=== PATIENT | male | born 1970 | race Caucasian/White ===

== ENCOUNTER 2019-11-25 15:02 | Emergency (ER) | payer MEDICARE, SELFPAY ==
[2019-11-25 15:31] VITALS: BP 125/81; PULSE 109; RESP 14; TEMP 36.7; O2SAT 98; BMI 29.0
--- NOTE | 2019-11-25 15:53 | XRR_ITS ---
PROCEDURE INFORMATION: Exam: XR Chest, 1 View Exam date and time: 11/25/2019 4:11 PM Age: 49 years old Clinical indication: Chest pain; Type not specified TECHNIQUE: Imaging protocol: XR of the chest Views: 1 view. COMPARISON: No relevant prior studies available. FINDINGS: Lungs: Unremarkable. No consolidation. Pleural space: Unremarkable. No pleural effusion. No pneumothorax. Heart/Mediastinum: Unremarkable. No cardiomegaly. Bones/joints: Unremarkable. XR/XR chest 1V portable [id number] IMPRESSION: No acute findings.
--- NOTE | 2019-11-25 15:53 | ECG_ITS ---
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 Measurements Intervals [place] Rate: 107 P: 43 KS: 156 QRS: 13 QRSD: 87 T: 44 QT: 319 QTc: 426 Interpretive Statements SINUS TACHYCARDIA POSSIBLE RIGHT VENTRICULAR CONDUCTION DELAY [RSR (QR) IN V1/V2] NONSPECIFIC ST & T-WAVE ABNORMALITY ABNORMAL RHYTHM ECG No previous ECG available for comparison Electronically Signed On 11-25-2019 18:06:03 CDT by Andrea Nava M.D. [email or web address]
--- NOTE | 2019-11-25 15:59 | ED_ITS ---
Documented by User: Paco Guevara DO 11/27/19 06:15 HPI - Chest Pain General: Chief Complaint: Chest Pain Stated Complaint: CHEST PAIN Time Seen by Provider: 11/25/19 15:56 History of Present Illness: HPI narrative: 50-year-old male presents emergency room complaining of chest pain and epigastric pain. He took an rhuq-osm-gzwvltv male enhancement pill yesterday and started getting discomfort since then he is not sure what is in it he does not think it was a Viagra or Cialis or Levitra. He is a little bit sedate in the room today. He has not had any GI blood loss. He denies any diarrhea. He has had some nausea and a couple episodes of vomiting. He does have a subjective fever no cough. He has no COVID exposure that he is aware of. Onset (ago): hour(s) Timing of current episode: episodic Onset: during rest and associated with drug use (New jfza-cdy-wenpbhk male enhancement pill) Pain location: epigastric Pain radiation: none (Chest) Quality: heaviness Relieving factors: nothing Exacerbating factors: other Associated symptoms: Reports abdominal pain, fever(s) and other (Cough); Deny dyspnea Treatment prior to arrival: none Review of Systems Const: Reports: fever(s) ENMT: Denies: throat pain, ear or mastoid pain, nasal discharge or nasal congestion Card: Denies: chest pain, edema, dyspnea on exertion or orthopnea Resp: Denies: dyspnea, productive cough or non-productive cough GI: Reports: abdominal pain : Denies: flank pain, dysuria, urinary frequency or urinary urgency Skin/Breast: Denies: rash or pruritus [facility] ED PFSH: Medical History (Updated 11/25/19 @ 16:44 by Paco Guevara DO) Anal fissure No significant past medical history Wrist fracture, left Social History (Updated 11/25/19 @ 16:06 by Paco Guevara DO) Smoking and tobacco status: never smoked Alcohol intake: never Physical Exam Const: COMMON NORMALS: no acute distress GENERAL APPEARANCE: cooperative and comfortable ORIENTATION/CONSCIOUSNESS: Yes awake, Yes oriented to person, Yes oriented to place and Yes oriented to time HENMT: COMMON NORMALS: normocephalic and atraumatic HEAD & SCALP: normocephalic and atraumatic Neck/C-Spine: COMMON NORMALS: no JVD Resp: COMMON NORMALS: normal respiratory effort, No retractions, No use of accessory muscles and clear to auscultation bilaterally AUSCULTATION: clear to auscultation bilaterally Cardio: COMMON NORMALS: no JVD, regular rate, regular rhythm and No murmurs present (Cardio) RATE: regular rate RHYTHM: regular rhythm GI: COMMON NORMALS: Soft to palpation and No hepatosplenomegaly present AUSCULTATION: Yes normoactive bowel sounds PALPATION: Yes Soft to palpation, No Tenderness to palpation present (GI), No Guarding due to palpation present (GI) and Yes No hepatosplenomegaly present Extremity: COMMON NORMALS: normal to inspection, capillary refill normal, no clubbing, cyanosis or edema, no calf tenderness and no pedal edema Neuro: SENSORIUM/ORIENTATION: Yes oriented to person, Yes oriented to place and Yes oriented to time Skin: COMMON NORMALS: no rashes or lesions noted GENERAL SKIN EXAM: no rashes or lesions noted Course Vital Signs: Vital signs: Vital Signs Temperature 98.1 F 11/25/19 15:31 Pulse Rate 109 H 11/25/19 16:58 Respiratory Rate 18 11/25/19 16:58 Blood Pressure 137/96 11/25/19 16:58 Pulse Oximetry 93 11/25/19 16:58 MDM - Chest Pain MDM Narrative: Medical decision making narrative: Troponin negative will discharge patient home start on Protonix encouraged him to avoid the ffeo-arj-kwkmpzb medication he took that seemed to precipitate this will set him up for a graded exercise test. Lab Data: Attestation: I reviewed the patient's lab results. Labs: Lab Results 11/25/19 11/25/19 11/25/19 Range/Units 16:05 16:05 16:05 WBC 11.5 H (4.0-10.0) 10^3/ uL RBC 5.17 (4.1-5.3) 10^6/u L Hgb 15.3 (11.7-16.6) g/dL Hct 47.3 (42.0-52.0) % MCV 91.5 (80-94) fL MCH 29.6 (28.0-34.0) pg MCHC 32.3 (30.0-36.0) g/dL RDW 12.9 (12.1-15.1) % Plt Count 217 (130-400) 10^3/c mm MPV 10.9 H (7.4-10.4) fL Neut % (Auto) 83.8 % Lymph % (Auto) 8.0 % Jackson % (Auto) 6.2 % Eos % (Auto) 1.5 % Baso % (Auto) 0.2 % Neut # (Auto) 9.63 H (1.8-7.7) 10^3/u L Lymph # (Auto) 0.9 (0.8-4.8) 10^3/u L Jackson # (Auto) 0.7 (0.2-0.9) 10^3/u L Eos # (Auto) 0.2 (0.0-0.8) 10^3/u L Baso # (Auto) 0.0 (0.0-0.1) 10^3/u L Nucleated RBC % (a uto) 0 % Nucleated RBCs # 0.0 /100WBC Sodium 136 (136-145) mmol/L Potassium 4.0 (3.5-5.1) mmol/L Chloride 100 (98-107) mmol/L Carbon Dioxide 27 (22-29) mmol/L Anion Gap 13.0 (5-19) BUN 16 (6-20) mg/dL Creatinine 1.2 (0.7-1.2) mg/dL GFR Calculation 63.8 L (90-130) mL/min Glucose 172 H (65-115) mg/dL Calculated Osmolal ity 282 L (285-295) mOsm/k g Calcium 9.6 (8.5-10.5) mg/dL Total Bilirubin 0.8 (0.15-1.2) mg/dL AST 17 (0-40) U/L ALT 18 (0-41) U/L Alkaline Phosphata se 92 (40-130) IU/L Troponin T Baselin e 6 (0-15) ng/L Total Protein 7.4 (6.6-8.7) g/dL Albumin 4.3 (3.5-5.2) g/dL Globulin 3.1 (1.3-4.6) g/dL Discharge Plan Discharge Patient Disposition: Home Clinical Impression: Reflux esophagitis, Medication side effect Condition: Stable Prescriptions: New Protonix 40 mg tablet,delayed release (DR/EC) 40 mg PO BID 14 Days Qty: 28 RF: 0 Discharge Orders: Discharge Order (Routine); Ordered 11/25/19 Ordered By: Paco Guevara Discharge Diet: Usual diet Discharge Activity: Resume usual activity Activity Restrictions/Additional Instructions: Do not take the mpjm-ktg-uwvtjay medication in question Discharge Date/Time: 11/25/19 16:59 Coding Level of Care Code ED Casework Specialist for Chg Fwd Exam Comprehensive Documented by User: GRADY Bird 11/28/19 07:05 HPI - Chest Pain General: Chief Complaint: Chest Pain Stated Complaint: CHEST PAIN Time Seen by Provider: 11/25/19 15:56 PFSH ED PFSH: Medical History (Updated 11/25/19 @ 16:44 by Paco Guevara DO) Anal fissure No significant past medical history Wrist fracture, left Social History (Updated 11/25/19 @ 16:06 by Paco Guevara DO) Smoking and tobacco status: never smoked Alcohol intake: never Course Vital Signs: Vital signs: Vital Signs Temperature 98.1 F 11/25/19 15:31 Pulse Rate 109 H 11/25/19 16:58 Respiratory Rate 18 11/25/19 16:58 Blood Pressure 137/96 11/25/19 16:58 Pulse Oximetry 93 11/25/19 16:58 MDM - Chest Pain MDM Narrative: Medical decision making narrative: I had originally started a chart on patient with the intent of seeing him however Dr. Casiano ended up seeing him instead. I had no active participation in any portion of patient's care. ES Lab Data: Labs: Lab Results 11/25/19 11/25/19 11/25/19 Range/Units 16:05 16:05 16:05 WBC 11.5 H (4.0-10.0) 10^3/ uL RBC 5.17 (4.1-5.3) 10^6/u L Hgb 15.3 (11.7-16.6) g/dL Hct 47.3 (42.0-52.0) % MCV 91.5 (80-94) fL MCH 29.6 (28.0-34.0) pg MCHC 32.3 (30.0-36.0) g/dL RDW 12.9 (12.1-15.1) % Plt Count 217 (130-400) 10^3/c mm MPV 10.9 H (7.4-10.4) fL Neut % (Auto) 83.8 % Lymph % (Auto) 8.0 % Jackson % (Auto) 6.2 % Eos % (Auto) 1.5 % Baso % (Auto) 0.2 % Neut # (Auto) 9.63 H (1.8-7.7) 10^3/u L Lymph # (Auto) 0.9 (0.8-4.8) 10^3/u L Jackson # (Auto) 0.7 (0.2-0.9) 10^3/u L Eos # (Auto) 0.2 (0.0-0.8) 10^3/u L Baso # (Auto) 0.0 (0.0-0.1) 10^3/u L Nucleated RBC % (a uto) 0 % Nucleated RBCs # 0.0 /100WBC Sodium 136 (136-145) mmol/L Potassium 4.0 (3.5-5.1) mmol/L Chloride 100 (98-107) mmol/L Carbon Dioxide 27 (22-29) mmol/L Anion Gap 13.0 (5-19) BUN 16 (6-20) mg/dL Creatinine 1.2 (0.7-1.2) mg/dL GFR Calculation 63.8 L (90-130) mL/min Glucose 172 H (65-115) mg/dL Calculated Osmolal ity 282 L (285-295) mOsm/k g Calcium 9.6 (8.5-10.5) mg/dL Total Bilirubin 0.8 (0.15-1.2) mg/dL AST 17 (0-40) U/L ALT 18 (0-41) U/L Alkaline Phosphata se 92 (40-130) IU/L Troponin T Baselin e 6 (0-15) ng/L Total Protein 7.4 (6.6-8.7) g/dL Albumin 4.3 (3.5-5.2) g/dL Globulin 3.1 (1.3-4.6) g/dL Discharge Plan Discharge Patient Disposition: Home Clinical Impression: Reflux esophagitis, Medication side effect Condition: Stable Prescriptions: New Protonix 40 mg tablet,delayed release (DR/EC) 40 mg PO BID 14 Days Qty: 28 RF: 0 Discharge Orders: Discharge Order (Routine); Ordered 11/25/19 Ordered By: Paco Guevara Discharge Diet: Usual diet Discharge Activity: Resume usual activity Activity Restrictions/Additional Instructions: Do not take the rqph-dzx-jjxizrv medication in question Discharge Date/Time: 11/25/19 16:59 Coding Level of Care Code ED Casework Specialist for Obed Fwduglas Exam Comprehensive
[2019-11-25 16:21] LABS: Basophils % 0.2 %; Eosinophils # 0.2 10^3/uL (0.0-0.8); Eosinophils % 1.5 %; Hematocrit 47.3 % (42.0-52.0); Hemoglobin 15.3 g/dL (11.7-16.6); Lymphocytes # 0.9 10^3/uL (0.8-4.8); Mean Corpuscular HGB Conc 32.3 g/dL (30.0-36.0); Mean Corpuscular Hemoglobin 29.6 pg (28.0-34.0); Mean Corpuscular Volume 91.5 fL (80-94); Mean Platelet Volume 10.9 fL (7.4-10.4); Monocytes # 0.7 10^3/uL (0.2-0.9); Monocytes % 6.2 %; Neutrophils # 9.63 10^3/uL (1.8-7.7); Neutrophils % 83.8 %; Nucleated Red Blood Cells % 0 %; Platelet Count 217 10^3/cmm (130-400); Red Blood Count 5.17 10^6/uL (4.1-5.3); Red Cell Distribution Width 12.9 % (12.1-15.1); White Blood Count 11.5 10^3/uL (4.0-10.0)
[2019-11-25 16:40] LABS: Alanine Aminotransferase 18 U/L (0-41); Albumin Level 4.3 g/dL (3.5-5.2); Alkaline Phosphatase 92 IU/L (40-130); Aspartate Amino Transferase 17 U/L (0-40); Blood Urea Nitrogen 16 mg/dL (6-20); Calcium 9.6 mg/dL (8.5-10.5); Carbon Dioxide 27 mmol/L (22-29); Chloride 100 mmol/L (98-107); Globulin 3.1 g/dL (1.3-4.6); Glomerular Filtration Rate 63.8 mL/min (90-130); Glucose 172 mg/dL (65-115); Osmolality Calculated 282 mOsm/kg (285-295); Sodium 136 mmol/L (136-145); Total Bilirubin 0.8 mg/dL (0.15-1.2); Total Protein 7.4 g/dL (6.6-8.7)
[2019-11-25 16:42] LABS: Troponin(5th) Baseline 6 ng/L (0-15)
[2019-11-25 16:58] VITALS: BP 137/96; PULSE 109; RESP 18; O2SAT 93
--- NOTE | 2019-11-27 15:27 | DCPLANNER ---
fountain manager had message to schedule an outpatient stress test for patient. fountain manager called phone number [phone], no answer and no voicemail set up, called [phone] and this phone number was not in service. fountain manager could not confirm that patient wanted to have test done, and could not confirm who patient sees for primary care at this time.
== END 2019-11-25 16:59 | disposition home or self-care (01) ==
PROVIDERS: Physician Assistant; Emergency Provider Family Medicine
DX: K21.0 Gastro-esophageal reflux disease with esophagitis (principal); T50.905A Adverse effect of unspecified drugs, medicaments and biological substances, initial encounter
CPT/HCPCS: 12345; 36415; 71045; 80053; 84484; 85025; 93005; 99281; 99283

== ENCOUNTER → 2022-05-14 13:13 | Outpatient (BNVA) | payer MEDICARE, MEDICAID, SELFPAY | PROVIDERS: Visit Provider Podiatrist Foot & Ankle Surgery | DX: B35.1 Tinea unguium (principal); L84 Corns and callosities; M72.2 Plantar fascial fibromatosis; L97.529 Non-pressure chronic ulcer of other part of left foot with unspecified severity | CPT/HCPCS: 11721; 73630; 99204 ==

== ENCOUNTER → 2022-05-21 14:09 | Outpatient (BNVA) | payer MEDICARE, MEDICAID, SELFPAY | PROVIDERS: Visit Provider Podiatrist Foot & Ankle Surgery | DX: B35.1 Tinea unguium (principal); L84 Corns and callosities; M72.2 Plantar fascial fibromatosis | CPT/HCPCS: 99213 ==

== ENCOUNTER → 2022-06-05 15:14 | Outpatient (BNVA) | payer MEDICARE, MEDICAID, SELFPAY | PROVIDERS: Visit Provider Podiatrist Foot & Ankle Surgery | DX: B35.1 Tinea unguium (principal); L84 Corns and callosities; M72.2 Plantar fascial fibromatosis | CPT/HCPCS: 99213 ==

== ENCOUNTER → 2022-06-27 13:00 | Outpatient (BNVA) | payer MEDICARE, MEDICAID, SELFPAY | PROVIDERS: Visit Provider Podiatrist Foot & Ankle Surgery | DX: B35.1 Tinea unguium (principal); L84 Corns and callosities; L97.522 Non-pressure chronic ulcer of other part of left foot with fat layer exposed | CPT/HCPCS: 99213 ==

== ENCOUNTER → 2022-07-04 13:27 | Outpatient (BNVA) | payer MEDICARE, MEDICAID, SELFPAY | PROVIDERS: Visit Provider Podiatrist Foot & Ankle Surgery | DX: L97.522 Non-pressure chronic ulcer of other part of left foot with fat layer exposed (principal); L84 Corns and callosities | CPT/HCPCS: 11042; 73630 ==

== ENCOUNTER → 2022-07-18 14:51 | Outpatient (BNVA) | payer MEDICARE, MEDICAID, SELFPAY | PROVIDERS: Visit Provider Podiatrist Foot & Ankle Surgery | DX: L84 Corns and callosities (principal); L97.522 Non-pressure chronic ulcer of other part of left foot with fat layer exposed | CPT/HCPCS: 99213 ==

== ENCOUNTER → 2022-07-31 09:49 | Outpatient (BNVA) | payer MEDICARE, MEDICAID, SELFPAY | PROVIDERS: Visit Provider Podiatrist Foot & Ankle Surgery | DX: L97.522 Non-pressure chronic ulcer of other part of left foot with fat layer exposed (principal) | CPT/HCPCS: 99213 ==

== ENCOUNTER 2022-08-10 05:41 | Day surgery (SDC) | payer MEDICARE, MEDICAID, SELFPAY ==
[2022-08-09 11:40] VITALS: BMI 29.0
[2022-08-10] VITALS (7 sets, daily range): BP systolic 90–163; BP diastolic 69–135; PULSE 81–101; RESP 16–18; TEMP 36.1–36.3; O2SAT 95–96
[2022-08-10] MEDS: acetaminophen 1,000 MG/100 ML PIGGYBACK 400 MG IV (06:12)
[2022-08-10] MEDS: gabapentin 300 mg Capsule PO (06:13)
[2022-08-10] MEDS: sodium chloride 0.9% 1,000 ML 30 ML IV (06:13)
--- NOTE | 2022-08-10 06:41 | P.HPUD_ITS ---
Surgery/Procedure H&P Update DATE OF PROCEDURE: August 10, 2022 DATE H&P PERFORMED: 07/31/22 CHANGES TO PREVIOUS DOCUMENTATION: No changes PLANNED PROCEDURE: Operation Date: 08/10/22 07:00 Proposed Procedures p :?Left hallux Incision bone cortex CPT 93454, Left 2nd toe partial amputation CPT 30889,?M86.172(Left) - Aneesh Anderson DPM s Left 2nd toe partial amputation CPT 57498(Left) - Aneesh Anderson DPM
--- NOTE | 2022-08-10 06:41 | W.PM.OPSUD ---
Surgery/Procedure H&P Update DATE OF PROCEDURE: August 10, 2022 DATE H&P PERFORMED: 07/31/22 CHANGES TO PREVIOUS DOCUMENTATION: No changes PLANNED PROCEDURE: Operation Date: 08/10/22 07:00 Proposed Procedures p :?Left hallux Incision bone cortex CPT 39670, Left 2nd toe partial amputation CPT 27701,?M86.172(Left) - Aneesh Anderson DPM s Left 2nd toe partial amputation CPT 10051(Left) - Aneesh Anderson DPM
[2022-08-10] MEDS: ceFAZolin 2,000 MG in sodium chloride 0.9% (plus) 50 ML 100 MG IV (07:00)
--- NOTE | 2022-08-10 07:12 | ANES.PREANE2 ---
Pre-Anesthetic Assessment Height/Weight: Height 1.85 m Weight 99.79 kg Temp Pulse Resp BP Pulse Ox O2 Del Method 97.4 F L 101 H 18 163/135 95 Room Air 08/10/22 06:00 08/10/22 06:00 08/10/22 06:00 08/10/22 06:00 08/10/22 06:00 08/10/22 06:08 Operation Date: 08/10/22 07:00 Proposed Procedures p :?Left hallux Incision bone cortex CPT 56704, Left 2nd toe partial amputation CPT 20047,?M86.172(Left) - Aneesh Anderson DPM s Left 2nd toe partial amputation CPT 27480(Left) - Aneesh Anderson DPM Familial anesthetic complications: none Was Beta Nely taken within 24 hours: N/A Was Clonidine taken within 24 hours: N/A Last intake: Intake Last Liquid Date 08/09/22 Last Liquid Time 22:30 Last Solid Date 08/09/22 Last Solid Time 21:00 Social Tobacco and No alcohol Exam alert, oriented x 3 and regular rate & rhythm Airway Submandibular: within normal limits Cervical ROM: within normal limits Mallampati: Class II Dentition: chipped and loose Pulmonary Chronic Obstructive Pulmonary Disease Anesthetic Plan ASA status: 2 Anesthesia: MAC Medications/Allergies Home Medications Medication Instructions Recorded Confirmed Last Taken Type doxycycline hyclate 100 mg capsule 100 mg PO BID #20 caps 07/31/22 08/09/22 08/09/22 Rx hydrocodone 5 mg-acetaminophen 325 1 tab PO Q6H #16 tabs 08/10/22 Unknown Rx mg tablet Allergies Allergy/AdvReac Type Severity Reaction Status Date / Time No Known Allergies Allergy Verified 08/09/22 11:38 Current Medications Generic Name Dose Route Start Last Admin Trade Name Freq PRN Reason Stop Dose Admin Sodium Chloride 1,000 mls @ 30 mls/hr 08/10/22 06:00 08/10/22 06:13 Sodium Chloride 0.9% IV 08/11/22 05:59 30 mls/hr .Q24H EUGENE Administration PFSH Anesthesia Medical History Anal fissure No significant past medical history Wrist fracture, left Social History Smoking and tobacco status: never smoked Alcohol intake: never Data Anesthesia Cardiac Studies: No Data to Display
[2022-08-10] MEDS: HYDROcodone-acetaminophen 5-325 mg Tablet 1 TAB PO (08:30)
--- NOTE | 2022-08-10 14:35 | ANE.PACU2 ---
Inpatient post-anesthesia follow up: Airway intact: Yes Vital signs: Temperature 97.1 F Pulse Rate 81 Respiratory Rate 18 Blood Pressure 109/81 Pulse Oximetry 96 Oxygen Delivery Me thod Room Air Oxygen Flow Rate 6 Fraction of Inspir ed Oxygen Hydration adequate: Yes Nausea and vomiting: No Pain level: 1 Mental status: Baseline
--- NOTE | 2022-08-10 17:00 | P.OP_ITS ---
Operative Report Date of procedure: August 10, 2022 Pre-op diagnosis: 1. Left hallux osteomyelitis 2. Left second toe osteomyelitis Post-op diagnosis: Same Post-op findings: Degenerative left hallux interphalangeal joint with evidence of osteomyelitis. Left second digit distal phalanx erosion consistent with osteomyelitis. Small abscess formation associated with left hallux interphalangeal joint. Procedure done: 1. Incision bone cortex left hallux CPT 37901 2. Left second digit partial amputation CPT 47054 Implants: Simplex P antibiotic cement spacer Specimens removed/disposition: Distal second digit left foot sent to pathology Deep tissue cultures left hallux interphalangeal joint sent to micro for ID and sensitivity Surgeon: Dr. Aneesh Anderson D.P.M. Estimated blood loss: Less than 10 cc Complications: None Findings: See above Procedure: Patient is a 52-year-old male that has a history of left hallux osteomyelitis as well as second digit osteomyelitis. The patient has had the aforementioned chief complaint for some time. Conservative treatment measures have been attempted and the patient has opted for surgical intervention at this time. A lengthy discussion regarding the procedure, including risks and complications has been had with the patient and is noted in the recent clinic note. Written and verbal consent have been obtained. All patient questions have been answered to the patient?s satisfaction. No written or verbal guarantees have been given or implied. The patient has been NPO since midnight. The history has been reviewed and the history and physical is current. The signed consent was confirmed and placed in the patient chart. Patient imaging has been reviewed and is consistent with the diagnosis. Under mild sedation, the patient was brought into the operating room and placed on the table in the supine position. IV antibiotics were given by the anesthesia team as preoperative surgical prophylaxis. IV sedation was then performed by the anesthesiateam. A pneumatic tourniquet was then placed about the left ankle. A local field block was then performed using 0.5% Marcaine plain the operative extremity was then prepped and draped in the usual fashion. The extremity was then elevated and exsanguinated before the tourniquet was inflated to 250 mmHg. After inflation, the following procedure was then performed. Attention was directed to the left hallux where a 4 cm incision was made over the hallux interphalangeal joint. Dissection was carried down through subcutaneous and superficial fascia to the level of the extensor tendon. The extensor tendon was then transected transversely at the level hallux interphalangeal joint. Dissection was carried down to the hallux interphalangeal joint capsule which was incised. The lateral aspect of the distal phalanx was discolored with erosive changes indicative of osteomyelitis. Sagittal bone saw was used to resect the hallux interphalangeal joint. After resection of the joint, deep tissue cultures aerobic and anaerobic were taken and sent to micro for ID and sensitivity. The site was irrigated with copious amounts of sterile saline before a Simplex P antibiotic spacer was placed into the void. Attention was then directed to closure. The extensor tendon was reapproximated using 2-0 Vicryl followed by skin closure using 3-0 nylon. Attention was then directed to the adjacent second digit. A fishmouth incision was made over the second digit using a #15 blade, this incision was full- thickness down to bone. Dissection was carried out to the level of the proximal interphalangeal joint. The distal digit was disarticulated at the level of the proximal phalangeal joint. The site was then irrigated with copious amounts of sterile saline. After irrigation, the amputation site was closed using 3-0 nylon in simple interrupted fashion. The tourniquet was let down and good hyperemic spots was noted to all digits of the left foot. The incision sites were dressed with Xeroform, 4 x 4 gauze, Kerlix, [place]. The patient tolerated the procedure and anesthesia well and without complication. The patient was transported from the operating room to the recovery room with vital signs stable and vascular status intact to all digits of the left foot. The patient was given both written and verbal instructions to remain weightbearing as tolerated to the operative extremity, to keep dress ings/splint clean, dry and intact and to take pain medication as directed. The patient will follow-up in the outpatient setting at their scheduled appointment. The patient was discharged with my personal number and was instructed to call if any questions or issues should arise. They were discharged home once anesthesia criteria was met.
== END 2022-08-10 09:00 | disposition home or self-care (01) ==
PROVIDERS: PCP Family Medicine; Visit Provider Podiatrist Foot & Ankle Surgery
PROC: (CPT 28005; principal; 2022-08-10 07:00)
PROC: (CPT 28005; 2022-08-10 07:00)
PROC: (CPT 20704; 2022-08-10 07:00)
DX: M86.172 Other acute osteomyelitis, left ankle and foot (principal); J44.9 Chronic obstructive pulmonary disease, unspecified
CPT/HCPCS: 28005; 28825; 87070; 87075; 87205; 88305; 88307; 88311; J0131; J0690; J2370; J2704; J3010; J3490; J7030

== ENCOUNTER → 2022-08-23 14:47 | Outpatient (BNVA) | payer MEDICARE, SELFPAY | PROVIDERS: PCP Family Medicine; Visit Provider Podiatrist Foot & Ankle Surgery | DX: Z98.890 Other specified postprocedural states (principal) | CPT/HCPCS: 99024 ==

== ENCOUNTER 2022-08-30 08:36 | Day surgery (SDC) | payer MEDICARE, MEDICAID, SELFPAY ==
[2022-08-29 13:20] VITALS: BMI 29.0
[2022-08-30] VITALS (10 sets, daily range): BP systolic 106–150; BP diastolic 82–98; PULSE 79–88; RESP 14–18; TEMP 36.1–36.4; O2SAT 93–99
--- NOTE | 2022-08-30 08:55 | ANES.PREANE2 ---
Pre-Anesthetic Assessment Height/Weight: Height 1.85 m Weight 99.79 kg Temp Pulse Resp BP Pulse Ox O2 Del Method 97.6 F 88 18 150/98 95 Room Air 08/30/22 08:53 08/30/22 08:53 08/30/22 08:53 08/30/22 08:53 08/30/22 08:53 08/30/22 08:53 Preop Diagnosis: Left hallux osteomyelitis Operation Date: 08/30/22 10:20 Proposed Procedures p :?Left hallux amputation CPT 14110 possible partial left 1st ray amputation CPT 49597(Left) - Aneesh Anderson DPM Familial anesthetic complications: None Was Beta Nely taken within 24 hours: N/A Was Clonidine taken within 24 hours: N/A Last intake: Intake Last Liquid Date 08/29/22 Last Liquid Time 23:45 Last Solid Date 08/29/22 Last Solid Time 19:00 Social Tobacco and No alcohol Exam alert, oriented x 3, clear to auscultation bilaterally and regular rate & rhythm Airway Mallampati: Class III Dentition: chipped and loose Anesthetic Plan ASA status: 1 Anesthesia: General Risk of > 500 ml blood loss (7ml/kg in children): No Medications/Allergies Home Medications Medication Instructions Recorded Confirmed Last Taken Type doxycycline hyclate 100 mg capsule 100 mg PO BID #20 caps 08/23/22 08/29/22 08/29/22 Rx Allergies Allergy/AdvReac Type Severity Reaction Status Date / Time No Known Allergies Allergy Verified 08/30/22 08:47 [facility] Anesthesia Medical History Anal fissure No significant past medical history Wrist fracture, left Social History Smoking and tobacco status: never smoked Alcohol intake: never Data Anesthesia Cardiac Studies: No Data to Display
[2022-08-30] MEDS: acetaminophen 1,000 MG/100 ML PIGGYBACK 400 MG IV (08:59)
[2022-08-30] MEDS: sodium chloride 0.9% 1,000 ML 30 ML IV (08:59)
[2022-08-30] MEDS: gabapentin 300 mg Capsule PO (08:59)
--- NOTE | 2022-08-30 09:58 | W.PM.OPSUD ---
Surgery/Procedure H&P Update DATE OF PROCEDURE: August 30, 2022 DATE H&P PERFORMED: 07/31/22 CHANGES TO PREVIOUS DOCUMENTATION: No changes PREOP DIAGNOSIS: Left hallux osteomyelitis PLANNED PROCEDURE: Operation Date: 08/30/22 10:20 Proposed Procedures p :?Left hallux amputation CPT 39372 possible partial left 1st ray amputation CPT 87168(Left) - Aneesh Anderson DPM
[2022-08-30] MEDS: ceFAZolin 2,000 MG in sodium chloride 0.9% (plus) 50 ML 100 MG IV (10:11)
--- NOTE | 2022-08-30 11:42 | P.OP_ITS ---
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 The patient has had the aforementioned chief complaint for some time. Conservative treatment measures have been attempted and the patient including hallux interphalangeal joint resection with Simplex P antibiotic spacer. The patient has opted for surgical intervention at this time. A lengthy discussion regarding the procedure, including risks and complications has been had with the patient and is noted in the recent clinic note. Written and verbal consent have been obtained. All patient questions have been answered to the patient?s satisfaction. No written or verbal guarantees have been given or implied. The patient has been NPO since midnight. The history has been reviewed and the history and physical is current. The signed consent was confirmed and placed in the patient chart. Patient imaging has been reviewed and is consistent with the diagnosis. Under mild sedation, the patient was brought into the operating room and placed on the table in the supine position. IV antibiotics were given by the anesthesia team as preoperative surgical prophylaxis. IV sedation was then performed by the anesthesiateam. A pneumatic tourniquet was then placed about the left ankle. The operative extremity was then prepped and draped in the usual fashion. The extremity was then elevated before the tourniquet was inflated to 250 mmHg. After inflation, the following procedure was then performed. Attention was directed to the left hallux where a fishmouth incision was made circumferentially about the hallux with care to preserve as much soft tissue as possible. Dissection was carried full-thickness down to level of bone. Dissection was carried out to the level of the first metatarsophalangeal joint. The collateral ligaments and attachments of the first metatarsal phalangeal joint capsule were excised. A penetrating towel clamp was then used to grasp the end of the hallux to joystick the hallux for amputation. All connections of the first metatarsophalangeal joint were released using a #15 blade. The hallux was then passed from the operative field be sent as specimen. The remaining tissues appeared healthy and viable in nature. The metatarsal head appeared he althy without any degenerative changes. The flexor and extensor tendons were then grasped and pulled distally before being incised as proximally as possible using a #15 blade. All remaining tissue appeared healthy. The site was then irrigated with copious amounts of sterile saline via cystoscopy tubing. The amputation site was then closed using 3-0 Prolene in simple interrupted, horizontal mattress and retention type fashion. The tourniquet was let down and good hyperemic response was noted to all remaining digits of the operative extremity. The incision site was then dressed with Xeroform, 4 x 4 gauze, Kerlix, Coban. The patient tolerated the procedure and anesthesia well and without complication. The patient was transported from the operating room to the recovery room with vital signs stable and vascular status intact to all digits of the left foot. The patient was given both written and verbal instructions to remain weightbearing as tolerated to the operative extremity, to keep dressings/splint clean, dry and intact and to take pain medication as directed. The patient will follow-up in the outpatient setting at their scheduled appointment. The patient was discharged with my personal number and was instructed to call if any questions or issues should arise. They were discharged home once anesthesia criteria was met.
--- NOTE | 2022-08-30 13:25 | ANE.PACU2 ---
Inpatient post-anesthesia follow up: Airway intact: Yes Vital signs: Temperature 97.2 F Pulse Rate 80 Respiratory Rate 16 Blood Pressure 136/83 Pulse Oximetry 94 Oxygen Delivery Me thod Room Air Oxygen Flow Rate 6 Fraction of Inspir ed Oxygen Hydration adequate: Yes Nausea and vomiting: No Pain level: 1 Mental status: Baseline
== END 2022-08-30 12:07 | disposition home or self-care (01) ==
PROVIDERS: PCP Family Medicine; Visit Provider Podiatrist Foot & Ankle Surgery
PROC: (CPT 28820; principal; 2022-08-30 10:00)
DX: M86.672 Other chronic osteomyelitis, left ankle and foot (principal)
CPT/HCPCS: 28820; 88305; 88311; J0131; J0690; J1100; J2405; J2704; J3010; J3490; J7030

== ENCOUNTER → 2022-09-06 12:56 | Outpatient (BNVA) | payer MEDICARE, SELFPAY | PROVIDERS: PCP Family Medicine; Visit Provider Podiatrist Foot & Ankle Surgery | DX: Z48.89 Encounter for other specified surgical aftercare (principal) | CPT/HCPCS: 99024 ==

== ENCOUNTER → 2022-09-12 15:49 | Outpatient (BNVA) | payer MEDICARE, SELFPAY | PROVIDERS: PCP Family Medicine; Visit Provider Podiatrist Foot & Ankle Surgery | DX: Z48.89 Encounter for other specified surgical aftercare (principal) | CPT/HCPCS: 99024 ==

== ENCOUNTER → 2022-09-19 15:02 | Outpatient (BNVA) | payer MEDICARE, MEDICAID, SELFPAY | PROVIDERS: PCP Family Medicine; Visit Provider Podiatrist Foot & Ankle Surgery | DX: L97.522 Non-pressure chronic ulcer of other part of left foot with fat layer exposed (principal); Z48.89 Encounter for other specified surgical aftercare; T81.31XA Disruption of external operation (surgical) wound, not elsewhere classified, initial encounter; Y83.8 Other surgical procedures as the cause of abnormal reaction of the patient, or of later complication, without mention of misadventure at the time of the procedure | CPT/HCPCS: 11042; 99024 ==

== ENCOUNTER → 2022-12-21 09:02 | Outpatient (BNVA) | payer MEDICARE, MEDICAID, SELFPAY | PROVIDERS: PCP Family Medicine; Visit Provider Podiatrist Foot & Ankle Surgery | DX: L97.522 Non-pressure chronic ulcer of other part of left foot with fat layer exposed (principal) | CPT/HCPCS: 99213 ==

== ENCOUNTER → 2023-01-31 10:46 | Outpatient (BNVA) | payer MEDICARE, MEDICAID, SELFPAY | PROVIDERS: PCP Family Medicine; Visit Provider Podiatrist Foot & Ankle Surgery | DX: L97.522 Non-pressure chronic ulcer of other part of left foot with fat layer exposed (principal) | CPT/HCPCS: 99213 ==

== ENCOUNTER → 2023-02-12 14:09 | Outpatient (BNVA) | payer MEDICARE, MEDICAID, SELFPAY | PROVIDERS: PCP Family Medicine; Visit Provider Podiatrist Foot & Ankle Surgery | DX: M79.672 Pain in left foot (principal); L97.522 Non-pressure chronic ulcer of other part of left foot with fat layer exposed; M86.8X7 Other osteomyelitis, ankle and foot | CPT/HCPCS: 73630; 99214 ==

== ENCOUNTER 2023-02-20 10:19 | Day surgery (SDC) | payer MEDICARE, MEDICAID, SELFPAY ==
[2023-02-20] VITALS (7 sets, daily range): BP systolic 86–156; BP diastolic 55–100; PULSE 83–97; RESP 16–18; TEMP 36.1–36.3; O2SAT 94–99
[2023-02-20] MEDS: acetaminophen 1,000 MG/100 ML PIGGYBACK 400 MG IV (10:50)
[2023-02-20] MEDS: gabapentin 300 mg Capsule PO (10:51)
[2023-02-20] MEDS: sodium chloride 0.9% 1,000 ML 30 ML IV (10:51)
--- NOTE | 2023-02-20 11:27 | P.HPUD_ITS ---
Surgery/Procedure H&P Update DATE OF PROCEDURE: February 20, 2023 DATE H&P PERFORMED: 02/12/23 H&P UPDATE INFORMATION: I have reviewed H&P completed within last 30 days, I have examined patient prior to procedure, No changes to prior documentation and H&P is in [facility] EMR on date indicated PREOP DIAGNOSIS: Osteomyelitis PLANNED PROCEDURE: Operation Date: 02/20/23 12:00 Proposed Procedures p ?Left foot partial 3rd digit amputation 64060,M86.10(Left) - Aneesh Anderson DPM
[2023-02-20] MEDS: ceFAZolin 2,000 MG in sodium chloride 0.9% (plus) 50 ML 100 MG IV (12:09)
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
[2023-02-20] MEDS: BUPivacaine 0.5% INJ 30 mL INJECTION (12:35)
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
--- NOTE | 2023-02-20 13:14 | ANE.PACU2 ---
Inpatient post-anesthesia follow up: Airway intact: Yes Vital signs: Temperature 97 F Pulse Rate 87 Respiratory Rate 16 Blood Pressure 90/55 Pulse Oximetry 97 Oxygen Delivery Me thod Room Air Oxygen Flow Rate 8 Fraction of Inspir ed Oxygen Hydration adequate: Yes Nausea and vomiting: No Pain level: 1 Mental status: Baseline
== END 2023-02-20 13:38 | disposition home or self-care (01) ==
PROVIDERS: PCP Family Medicine; Visit Provider Podiatrist Foot & Ankle Surgery
PROC: (CPT 28825; principal; 2023-02-20 12:00)
DX: M86.8X7 Other osteomyelitis, ankle and foot (principal); L97.522 Non-pressure chronic ulcer of other part of left foot with fat layer exposed
CPT/HCPCS: 28825; 87070; 87075; 87077; 87186; 87205; 88305; 88311; J0131; J0690; J2704; J3010; J3490; J7030

== ENCOUNTER → 2023-03-06 13:34 | Outpatient (BNVA) | payer MEDICARE, MEDICAID, SELFPAY | PROVIDERS: PCP Family Medicine; Visit Provider Podiatrist Foot & Ankle Surgery | DX: M86.8X7 Other osteomyelitis, ankle and foot; Z89.422 Acquired absence of other left toe(s); Z89.412 Acquired absence of left great toe | CPT/HCPCS: 99213 ==

== ENCOUNTER 2023-09-23 19:52 | Emergency (ER) | payer MEDICARE, MEDICAID, SELFPAY ==
[2023-09-23 19:55] VITALS: BP 155/102; PULSE 107; RESP 18; O2SAT 90; BMI 29.0
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
[2023-09-23 20:14] VITALS: TEMP 37.2
[2023-09-23] MEDS: ondansetron 2 mg/ML SDV 2 mL 4 MG IVP (20:35)
[2023-09-23] MEDS: morphine 4 mg/mL SDV 1 mL IVP (20:35)
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
[2023-09-23] MEDS: amoxicillin-clav 875-125 mg Tablet 1 TAB PO (21:45)
[2023-09-23 21:46] VITALS: BP 122/89; PULSE 98; RESP 16; TEMP 37.2; O2SAT 92
--- NOTE | 2023-09-24 09:26 | DCPLANNER ---
REferral for ENT sent to Dr Tinoco's Office -Facial Fx 09/24/23
--- NOTE | 2023-09-25 14:25 | DCPLANNER ---
DR. Arnold office called patient needs to be sent to [facility]- Dr Tinoco doesn't deal with facial Fx's -per office- Sent referral to [facility].
== END 2023-09-23 21:59 | disposition home or self-care (01) ==
PROVIDERS: Emergency Provider Physician Assistant; PCP Family Medicine
DX: S02.2XXA Fracture of nasal bones, initial encounter for closed fracture (principal); S02.40CA Maxillary fracture, right side, initial encounter for closed fracture; Y04.2XXA Assault by strike against or bumped into by another person, initial encounter; Y92.149 Unspecified place in prison as the place of occurrence of the external cause
CPT/HCPCS: 70450; 70486; 71100; 72125; 73030; 96374; 96375; 99285; J2270; J2405

== ENCOUNTER → 2023-12-19 14:14 | Outpatient (BNVA) | payer MEDICARE, MEDICAID, SELFPAY | PROVIDERS: PCP Family Medicine; Visit Provider Student in an Organized Health Care Education/Training Program | DX: M25.511 Pain in right shoulder; M75.41 Impingement syndrome of right shoulder | CPT/HCPCS: 20610; 73030; 99204; J3301 ==

== ENCOUNTER → 2024-01-20 09:49 | Outpatient (BNVA) | payer MEDICARE, MEDICAID, SELFPAY | PROVIDERS: PCP Family Medicine; Visit Provider Podiatrist Foot & Ankle Surgery | DX: L97.526 Non-pressure chronic ulcer of other part of left foot with bone involvement without evidence of necrosis | CPT/HCPCS: 73630; 99213 ==

== ENCOUNTER → 2024-01-23 12:58 | Outpatient (BNVA) | payer MEDICARE, MEDICAID, SELFPAY | PROVIDERS: Visit Provider Thoracic Surgery (Cardiothoracic Vascular Surgery) | DX: E11.621 Type 2 diabetes mellitus with foot ulcer (principal); E11.52 Type 2 diabetes mellitus with diabetic peripheral angiopathy with gangrene; L89.892 Pressure ulcer of other site, stage 2 | CPT/HCPCS: 87070; 87077; 87176; 87186; 87205; 97597; 99213 ==

== ENCOUNTER → 2024-02-06 13:36 | Outpatient (BNVA) | payer MEDICARE, MEDICAID, SELFPAY | PROVIDERS: Visit Provider Thoracic Surgery (Cardiothoracic Vascular Surgery) | DX: E11.52 Type 2 diabetes mellitus with diabetic peripheral angiopathy with gangrene (principal); E11.621 Type 2 diabetes mellitus with foot ulcer; L97.524 Non-pressure chronic ulcer of other part of left foot with necrosis of bone | CPT/HCPCS: 11044; 87070; 87176; 87205 ==

== ENCOUNTER 2024-02-10 09:57 | Outpatient (RCR) | payer MEDICARE, MEDICAID, SELFPAY | END 2024-02-29 23:59 | disposition home or self-care (01) | LOC: SPT 09:57 | PROVIDERS: Visit Provider Student in an Organized Health Care Education/Training Program | DX: M75.41 Impingement syndrome of right shoulder (principal) | CPT/HCPCS: 97110; 97161 ==

== ENCOUNTER → 2024-02-13 14:12 | Outpatient (BNVA) | payer MEDICARE, MEDICAID, SELFPAY | PROVIDERS: Visit Provider Thoracic Surgery (Cardiothoracic Vascular Surgery) | DX: E11.52 Type 2 diabetes mellitus with diabetic peripheral angiopathy with gangrene (principal); E11.621 Type 2 diabetes mellitus with foot ulcer; L97.524 Non-pressure chronic ulcer of other part of left foot with necrosis of bone | CPT/HCPCS: 97597; A6210 ==

== ENCOUNTER → 2024-02-20 10:53 | Outpatient (BNVA) | payer MEDICARE, MEDICAID, SELFPAY | PROVIDERS: Visit Provider Thoracic Surgery (Cardiothoracic Vascular Surgery) | DX: E11.52 Type 2 diabetes mellitus with diabetic peripheral angiopathy with gangrene (principal); E11.621 Type 2 diabetes mellitus with foot ulcer; L97.526 Non-pressure chronic ulcer of other part of left foot with bone involvement without evidence of necrosis | CPT/HCPCS: 97597 ==

== ENCOUNTER → 2024-02-26 13:22 | Outpatient (BNVA) | payer MEDICARE, MEDICAID, SELFPAY | PROVIDERS: Visit Provider Thoracic Surgery (Cardiothoracic Vascular Surgery) | DX: E11.52 Type 2 diabetes mellitus with diabetic peripheral angiopathy with gangrene (principal); E11.621 Type 2 diabetes mellitus with foot ulcer; L97.521 Non-pressure chronic ulcer of other part of left foot limited to breakdown of skin | CPT/HCPCS: 97597 ==

== ENCOUNTER → 2024-03-04 08:00 | Outpatient (BNVA) | payer MEDICARE, MEDICAID, SELFPAY | PROVIDERS: PCP Family Medicine; Visit Provider Podiatrist Foot & Ankle Surgery | DX: L97.522 Non-pressure chronic ulcer of other part of left foot with fat layer exposed (principal) | CPT/HCPCS: 99214 ==

== ENCOUNTER 2024-03-09 09:10 | Day surgery (SDC) | payer MEDICARE, MEDICAID, SELFPAY ==
--- NOTE | 2024-03-09 09:14 | ANES.PREANE2 ---
Pre-Anesthetic Assessment Height/Weight: Height 6 ft 1 in Preop Diagnosis: Ulcer of the foot Operation Date: 03/09/24 11:00 Proposed Procedures p Left foot 2nd toe amputation(Left) - Aneesh Anderson DPM Was Beta Nely taken within 24 hours: N/A Was Clonidine taken within 24 hours: N/A Social No alcohol and No tobacco Exam alert, oriented x 3, clear to auscultation bilaterally and regular rate & rhythm Airway Submandibular: within normal limits Cervical ROM: within normal limits Mallampati: Class III Comments: Comments: Poor dentition, denies any loose Anesthetic Plan ASA status: 2 Anesthesia: MAC Other: No prior issues with anesthesia in the past NPO since Denies any pulmonary or cardiac issues. Preop BP 131/91 METs greater than 4 Plan for MAC anesthetic with local via surgeon Medications/Allergies Home Medications Medication Instructions Recorded Confirmed Last Taken Type hydrocodone 5 mg-acetaminophen 325 1 tab PO Q6H PRN pain #16 tabs 03/09/24 Unknown Rx mg tablet Allergies Allergy/AdvReac Type Severity Reaction Status Date / Time No Known Allergies Allergy Verified 03/05/24 13:37 [facility] Anesthesia Medical History Wrist fracture, left Anal fissure No significant past medical history Social History Smoking and tobacco/nicotine status: never used tobacco/nicotine Alcohol intake: never Data Anesthesia Cardiac Studies: No Data to Display
[2024-03-09 09:43] VITALS: BP 131/91; PULSE 94; RESP 18; TEMP 36.5; O2SAT 94
[2024-03-09 09:45] VITALS: BMI 28.3
[2024-03-09] MEDS: sodium chloride 0.9% 1,000 ML 30 ML IV (09:50)
[2024-03-09] MEDS: gabapentin 300 mg Capsule PO (09:50)
[2024-03-09] MEDS: acetaminophen 1,000 MG/100 ML PIGGYBACK 400 MG IV (09:50)
--- NOTE | 2024-03-09 09:52 | W.PM.OPSUD ---
Surgery/Procedure H&P Update DATE OF PROCEDURE: March 09, 2024 DATE H&P PERFORMED: 03/04/24 H&P UPDATE INFORMATION: I have reviewed H&P completed within last 30 days, I have examined patient prior to procedure, No changes to prior documentation and H&P is in [facility] EMR on date indicated PREOP DIAGNOSIS: Left 2nd toe osteomyelitis PLANNED PROCEDURE: Operation Date: 03/09/24 11:00 Proposed Procedures p Left foot 2nd toe amputation(Left) - Aneesh Anderson DPM
[2024-03-09] MEDS: ceFAZolin 2,000 mg SDV 2000 MG IVP (10:07)
[2024-03-09] MEDS: BUPivacaine 0.5% INJ 30 mL XX (10:25)
[2024-03-09 10:43] VITALS: BP 109/90; PULSE 81; RESP 14; TEMP 36.1; O2SAT 93
--- NOTE | 2024-03-09 10:43 | P.OP_ITS ---
Operative Report Date of procedure: March 09, 2024 Pre-op diagnosis: Left foot second toe osteomyelitis Post-op diagnosis: Same Post-op findings: Degenerative changes left foot secondary to proximal phalanx consistent with osteomyelitis Procedure done: Left foot second toe amputation CPT 49604 Pathology: Left foot second digit proximal phalanx sent as surgical specimen Surgeon: Aneesh Anderson DPM Acute Dialysis Registered Nurse: Rosemary Estimated blood loss: 5 cc 14 minutes Complications: None Findings: See above Procedure: Patient is a 54-year-old male that has a history of left foot second digit chronic ulceration with underlying osteomyelitis. The patient has had the aforementioned chief complaint for some time. Conservative treatment measures have been attempted and the patient has opted for surgical intervention at this time. A lengthy discussion regarding the procedure, including risks and complications has been had with the patient and is noted in the recent clinic note. Written and verbal consent have been obtained. All patient questions have been answered to the patient?s satisfaction. No written or verbal guarantees have been given or implied. The patient has been NPO since midnight. The history has been reviewed and the history and physical is current. The signed consent was confirmed and placed in the patient chart. Patient imaging has been reviewed and is consistent with the diagnosis. Under mild sedation, the patient was brought into the operating room and placed on the table in the supine position. IV antibiotics were given by the anesthesia team as preoperative surgical prophylaxis. IV sedation was then performed by the anesthesiateam. A pneumatic tourniquet was then placed about the left ankle. A local field block was performed using 0.5% Marcaine plain. The operative extremity was then prepped and draped in the usual fashion. The extremity was then elevated before the tourniquet was inflated to 250 mmHg. After inflation, the following procedure was then performed. She was directed to the left foot where a tennis racquet style incision was made overlying the second digit. Dissection was carried down to the level of the second tarsal phalangeal joint using #15 blade. The proximal phalanx was removed from the foot and passed from the operative field. There was noted to be degenerative changes with the head of the proximal phalanx consistent with osteomyelitis. Remaining tissue appeared healthy and viable. Hemostasis was achieved via electrocautery. Incision site was closed with 2-0 nylon in simple interrupted fashion. Tourniquet was let down and good hyperemic response was noted to all remaining digits of the left foot. Incision site was dressed with Xeroform, 4 x 4 gauze, Kerlix, Donavan. The patient tolerated the procedure and anesthesia well and without complication. The patient was transported from the operating room to the recovery room with vital signs stable and vascular status intact to all digits of the left foot. The patient was given both written and verbal instructions to remain weightbearing as tolerated in postop shoe to the operative extremity, to keep dressings/splint clean, dry and intact and to take pain medication as directed. The patient will follow-up in the outpatient setting at their scheduled appointment. The patient was discharged with my personal number and was instructed to call if any questions or issues should arise. They were discharged home once anesthesia criteria was met.
[2024-03-09 10:48] VITALS: BP 107/86; PULSE 77; RESP 16; O2SAT 97
[2024-03-09 10:53] VITALS: BP 117/85; PULSE 82; RESP 18; O2SAT 94
[2024-03-09 10:57] VITALS: BP 118/84; PULSE 82; RESP 18; TEMP 36.4; O2SAT 92
[2024-03-09 11:10] VITALS: BP 122/80; PULSE 78; RESP 18; TEMP 36.4; O2SAT 92
--- NOTE | 2024-03-09 11:28 | ANE.PACU2 ---
Inpatient post-anesthesia follow up: Airway intact: Yes Vital signs: Temperature 97.5 F Pulse Rate 78 Respiratory Rate 18 Blood Pressure 122/80 Pulse Oximetry 92 Oxygen Delivery Me thod Room Air Oxygen Flow Rate 8 Fraction of Inspir ed Oxygen Hydration adequate: Yes Nausea and vomiting: No Pain level: 1 Mental status: Baseline
== END 2024-03-09 11:28 | disposition home or self-care (01) ==
PROVIDERS: PCP Family Medicine; Visit Provider Podiatrist Foot & Ankle Surgery
PROC: (CPT 28820; principal; 2024-03-09 10:50)
DX: M86.8X7 Other osteomyelitis, ankle and foot (principal)
CPT/HCPCS: 28820; 88305; 88311; J0131; J0690; J2704; J3010; J3490; J7030

== ENCOUNTER → 2024-03-16 14:48 | Outpatient (BNVA) | payer MEDICARE, MEDICAID, SELFPAY | PROVIDERS: PCP Family Medicine; Visit Provider Podiatrist Foot & Ankle Surgery | DX: L97.522 Non-pressure chronic ulcer of other part of left foot with fat layer exposed (principal) | CPT/HCPCS: 99213 ==

== ENCOUNTER → 2024-03-17 13:18 | Outpatient (BNVA) | payer MEDICARE, MEDICAID, SELFPAY | PROVIDERS: PCP Family Medicine; Visit Provider Physician Assistant | DX: M75.41 Impingement syndrome of right shoulder (principal) | CPT/HCPCS: 99213 ==

== ENCOUNTER → 2024-03-23 14:45 | Outpatient (BNVA) | payer MEDICARE, MEDICAID, SELFPAY | PROVIDERS: PCP Family Medicine; Visit Provider Podiatrist Foot & Ankle Surgery | DX: L97.522 Non-pressure chronic ulcer of other part of left foot with fat layer exposed (principal) | CPT/HCPCS: 99213 ==